=== PATIENT | female | born 1965 ===

== ENCOUNTER 2017-11-11 12:24 | Inpatient (IN) | payer OTHER ==
[~2017-11-11] VITALS: Ht 162.6 cm; Wt 77.1 kg
[2017-11-11] MEDS ORDERED: TRAMADOL HCL50 MG (13:16)
[2017-11-11] MEDS ORDERED: RALOXIFENE HCL60 MG (13:17)
[2017-11-25] MEDS ORDERED: MERREM1 GM IV (16:56)
[2017-11-25] MEDS ORDERED: VANCOMYCIN HCL1 GM IV (16:56)
== END 2017-11-28 16:00 | disposition home health service (06) | DRG 571 ==
LOC: ER 12:24 → MEDJ 22:12
PROC: B54BZZZ Ultrasonography of Right Lower Extremity Veins (ICD-10-PCS; 2017-11-11)
PROC: BW28ZZZ Computerized Tomography (CT Scan) of Head (ICD-10-PCS; 2017-11-13)
PROC: BQ3LZZZ Magnetic Resonance Imaging (MRI) of Right Foot (ICD-10-PCS; 2017-11-13)
PROC: B030ZZZ Magnetic Resonance Imaging (MRI) of Brain (ICD-10-PCS; 2017-11-15)
PROC: 4A033R1 Measurement of Arterial Saturation, Peripheral, Percutaneous Approach (ICD-10-PCS; 2017-11-21)
PROC: 0JBQ0ZZ Excision of Right Foot Subcutaneous Tissue and Fascia, Open Approach (ICD-10-PCS; principal; 2017-11-23)
PROC: 02HV33Z Insertion of Infusion Device into Superior Vena Cava, Percutaneous Approach (ICD-10-PCS; 2017-11-24)
DX: L03.115 Cellulitis of right lower limb (principal); L02.611 Cutaneous abscess of right foot; E86.0 Dehydration; F17.210 Nicotine dependence, cigarettes, uncomplicated; D32.0 Benign neoplasm of cerebral meninges; I10 Essential (primary) hypertension; R51 Headache; D72.823 Leukemoid reaction; I80.8 Phlebitis and thrombophlebitis of other sites; C50.811 Malignant neoplasm of overlapping sites of right female breast
CPT/HCPCS: 70544; 73725

== ENCOUNTER 2017-12-05 08:49 | Emergency (ER) | payer OTHER ==
[~2017-12-05] VITALS: Ht 157.5 cm; Wt 83.5 kg
[~2017-12-05 08:49] MED LIST: MERREM1 GM IV; RALOXIFENE HCL60 MG; TRAMADOL HCL50 MG; VANCOMYCIN HCL1 GM IV
[2017-12-05] MEDS ORDERED: EVISTA60 MG PO (09:10)
== END 2017-12-05 14:10 | disposition home or self-care (01) ==
LOC: ER 08:49
DX: L03.115 Cellulitis of right lower limb (principal)